=== PATIENT | male | born 1975 | race Caucasian/White ===

== ENCOUNTER 2020-09-29 18:17 | Outpatient (CLI) | payer MEDICAID ==
[2020-09-29 19:59] LABS: BASOPHILS # (AUTO) 0.1 X10'3 (0-0.2); BASOPHILS % (AUTO) 0.9 % (0-1); EOSINOPHILS # (AUTO) 0.3 X10'3 (0-0.9); EOSINOPHILS % (AUTO) 2.9 % (0-6); HEMATOCRIT 37.8 % (42.0-52.0); HEMOGLOBIN 12.7 g/dl (14.0-17.9); LYMPHOCYTES # (AUTO) 2.3 X10'3 (1.1-4.8); LYMPHOCYTES % (AUTO) 23.6 % (21-51); MEAN CORPUSCULAR HGB CONC 33.5 g/dL (33.0-36.5); MEAN CORPUSCULAR VOLUME 89.6 FL (78-98); MEAN PLATELET VOLUME 6.9 FL (7.4-10.4); MONOCYTES # (AUTO) 0.8 X10'3 (0-0.9); MONOCYTES % (AUTO) 8.2 % (2-12); NEUTROPHILS # (AUTO) 6.4 X10'3 (1.8-7.7); NEUTROPHILS % (AUTO) 64.4 % (42-75); PLATELET COUNT 498 X10'3 (140-440); RED BLOOD COUNT 4.22 X10'6 (4.70-6.10); RED CELL DISTRIBUTION WIDTH 12.6 % (11.5-14.5)
[2020-09-29 20:14] LABS: ALBUMIN 3.2 G/DL (3.4-5.0); ANION GAP 11 (8-16); BLOOD UREA NITROGEN 20 MG/DL (7-18); BUN/CREATININE RATIO 20.8 (5.4-32.0); C-REACTIVE PROTEIN 6.52 MG/DL (0.0-0.5); CALCIUM 8.9 MG/DL (8.5-10.1); CHLORIDE 106 MMOL/L (99-107); CREATININE 0.96 MG/DL (0.60-1.10); GLUCOSE 105 MG/DL (70-104); POTASSIUM 4.1 MMOL/L (3.5-5.1); SODIUM 144 MMOL/L (135-145); TOTAL CARBON DIOXIDE 27.3 MMOL/L (24-32); eGFR 85 ML/MIN
== END 2020-09-29 23:59 | disposition home or self-care (01) ==
LOC: LAB SPEC 18:17
PROVIDERS: ATTEND Internal Medicine Infectious Disease
DX: M00.069 Staphylococcal arthritis, unspecified knee (principal)
CPT/HCPCS: 36415; 80048; 85025; 85651; 86140

== ENCOUNTER → 2020-10-06 | Outpatient (CLI) | payer MEDICAID ==
[2020-10-06 18:02] LABS: BASOPHILS % (AUTO) 0.3 % (0-1); EOSINOPHILS # (AUTO) 0.6 X10'3 (0-0.9); EOSINOPHILS % (AUTO) 6.4 % (0-6); HEMATOCRIT 34.4 % (42.0-52.0); LYMPHOCYTES # (AUTO) 3.1 X10'3 (1.1-4.8); LYMPHOCYTES % (AUTO) 34.4 % (21-51); MEAN CORPUSCULAR HEMOGLOBIN 30.3 PG (27.0-31.0); MEAN CORPUSCULAR HGB CONC 34.7 g/dL (33.0-36.5); MEAN CORPUSCULAR VOLUME 87.3 FL (78-98); MEAN PLATELET VOLUME 7.3 FL (7.4-10.4); MONOCYTES # (AUTO) 0.5 X10'3 (0-0.9); MONOCYTES % (AUTO) 5.7 % (2-12); NEUTROPHILS # (AUTO) 4.8 X10'3 (1.8-7.7); NEUTROPHILS % (AUTO) 53.2 % (42-75); PLATELET COUNT 438 X10'3 (140-440); RED BLOOD COUNT 3.95 X10'6 (4.70-6.10); RED CELL DISTRIBUTION WIDTH 12.8 % (11.5-14.5)
[2020-10-06 18:16] LABS: ALBUMIN 3.1 G/DL (3.4-5.0); ANION GAP 9 (8-16); BLOOD UREA NITROGEN 12 MG/DL (7-18); C-REACTIVE PROTEIN 4.61 MG/DL (0.0-0.5); CALCIUM 8.5 MG/DL (8.5-10.1); CHLORIDE 106 MMOL/L (99-107); CREATININE 0.75 MG/DL (0.60-1.10); GLUCOSE 115 MG/DL (70-104); POTASSIUM 4.1 MMOL/L (3.5-5.1); SODIUM 145 MMOL/L (135-145); TOTAL CARBON DIOXIDE 29.9 MMOL/L (24-32); eGFR > 90 ML/MIN
== END | disposition home or self-care (01) ==
LOC: LAB SPEC 17:24
PROVIDERS: ATTEND Internal Medicine Infectious Disease
DX: M00.069 Staphylococcal arthritis, unspecified knee (principal)
CPT/HCPCS: 36415; 80048; 85025; 85651; 86140

== ENCOUNTER 2020-10-13 18:47 | Outpatient (CLI) | payer MEDICAID ==
[2020-10-13 19:12] LABS: BASOPHILS # (AUTO) 0.1 X10'3 (0-0.2); EOSINOPHILS # (AUTO) 0.8 X10'3 (0-0.9); EOSINOPHILS % (AUTO) 9.1 % (0-6); HEMATOCRIT 37.1 % (42.0-52.0); HEMOGLOBIN 12.4 g/dl (14.0-17.9); LYMPHOCYTES # (AUTO) 2.7 X10'3 (1.1-4.8); LYMPHOCYTES % (AUTO) 29.4 % (21-51); MEAN CORPUSCULAR HEMOGLOBIN 29.7 PG (27.0-31.0); MEAN CORPUSCULAR HGB CONC 33.4 g/dL (33.0-36.5); MEAN CORPUSCULAR VOLUME 88.9 FL (78-98); MEAN PLATELET VOLUME 7.5 FL (7.4-10.4); MONOCYTES # (AUTO) 0.6 X10'3 (0-0.9); MONOCYTES % (AUTO) 6.2 % (2-12); NEUTROPHILS # (AUTO) 4.9 X10'3 (1.8-7.7); NEUTROPHILS % (AUTO) 54.3 % (42-75); PLATELET COUNT 349 X10'3 (140-440); RED BLOOD COUNT 4.17 X10'6 (4.70-6.10)
[2020-10-13 19:34] LABS: ALBUMIN 3.5 G/DL (3.4-5.0); ANION GAP 7 (8-16); BLOOD UREA NITROGEN 15 MG/DL (7-18); BUN/CREATININE RATIO 16.3 (5.4-32.0); CHLORIDE 109 MMOL/L (99-107); CREATININE 0.92 MG/DL (0.60-1.10); GLUCOSE 83 MG/DL (70-104); POTASSIUM 4.5 MMOL/L (3.5-5.1); SODIUM 145 MMOL/L (135-145); TOTAL CARBON DIOXIDE 28.9 MMOL/L (24-32); eGFR 89 ML/MIN
== END 2020-10-13 23:59 | disposition home or self-care (01) ==
LOC: LAB SPEC 18:47
PROVIDERS: ATTEND Internal Medicine Infectious Disease
DX: M00.069 Staphylococcal arthritis, unspecified knee (principal)
CPT/HCPCS: 36415; 80048; 85025; 85651; 86140